=== PATIENT | male | born 1950 | race Caucasian/White ===

== ENCOUNTER → 2018-04-01 09:19 | Outpatient (CLI) | payer MEDICARE, OTHER, SELFPAY ==
--- NOTE | 2018-04-01 09:28 | US_ITS ---
STUDY: SUPERFICIAL ULTRASOUND - RIGHT CERVICAL REGION. REASON FOR EXAM: Male, 67 years old. Possible foreign body. TECHNIQUE: A superficial ultrasound was performed with real-time and static mcmullen-scale imaging. COMPARISON: None. FINDINGS: The right submandibular region was examined by ultrasound. There is evidence of a 4 mm x 5 mm x 4 mm slightly irregular hypoechoic density. This may represent either a focal hematoma or early abscess with the patient's history of a injury with a foreign body. This is a deep to the subcutaneous tissues. A follow-up examination following antibiotic therapy is recommended. US/Head/Neck Soft Tissue IMPRESSION: There is a 4 mm x 5 mm x 4 mm irregular area of decreased echotexture as described. With the patient's history of a penetrating injury, this may represent either early abscess or hematoma. Recommend short-term follow-up following antibiotic therapy. Electronically Signed: Evan Garcia MD at 12:40 EST Tel [phone], Service support ,
--- OUTSIDE RECORDS SUMMARY | 2018-06-05 23:04 | XMS RPT_ITS ---
:1950 Author Organization OHIP Care Team Providers Name Role Phone LUKAS BARRETT Attending Unavailable LUKAS BARRETT Referring Unavailable LUKAS BARRETT Primary Care Unavailable Lukas Barrett Primary Care Unavailable Sree Palm Attending Unavailable Sree Palm Admitting Unavailable Lukas Barrett Primary Care Unavailable Sree Palm Attending Unavailable Sree Palm Admitting Unavailable PROBLEMS PROBLEMS No Problem Records FoundPROCEDURES PROCEDURES No Procedure Records FoundRESULTS RESULTS HEAD/NECK SOFT TISSUE Observed: 04/01/2018 Status: F Source: COMMACK 9:28 AM [facility] REPOSITORY [facility] Imaging Services [address] [place] [id number] Head/Neck Soft Tissue MR#: [id number] Acct: [id number] Name: WU DE LEON Rep #: [id number] : 1950 M 67 From: Evan Garcia MD PCP: Lukas Barrett MD Status: REG CLI Study: Head/Neck Soft Tissue Date of Exam: 04/01/18 Exam# [id number] Ordering Dr: Lukas Barrett MD STUDY: SUPERFICIAL ULTRASOUND - RIGHT CERVICAL REGION. REASON FOR EXAM: Male, 67 years old. Possible foreign body. TECHNIQUE: A superficial ultrasound was performed with real- time and static mcmullen-scale imaging. COMPARISON: None. FINDINGS: The right submandibular region was examined by ultrasound. There is evidence of a 4 mm x 5 mm x 4 mm slightly irregular hypoechoic density. This may represent either a focal hematoma or early abscess with the patient's history of a injury with a foreign body. This is a deep to the subcutaneous tissues. A follow-up examination following antibiotic therapy is recommended. US/Head/Neck Soft Tissue IMPRESSION: There is a 4 mm x 5 mm x 4 mm irregular area of decreased echotexture as described. With the patient's history of a penetrating injury, this may represent either early abscess or hematoma. Recommend short- term follow-up following antibiotic therapy. Electronically Signed: Evan Garcia MD at 12:40 EST Tel [phone], Service support , CC: Lukas Barrett MD Tobacco Checkout Clerk: Signed XR HIP 2-3 VIEWS Observed: 01/22/2018 Status: F Source: CHRISTIAN LEFT + PELVIS 4:22 PM [facility] REPOSITORY Exam Date/Time: 01/22/2018 16:36 EST Reason for Exam: Pain, Traumatic Report STUDY: XR Hip 2-3 Views Left + Pelvis; 01/22/2018 4:36 pm INDICATION: Pain, Traumatic. COMPARISON: None. ACCESSION NUMBER(S): [id number] ORDERING CLINICIAN: Sree Palm FINDINGS: Four views left hip There is no fracture or dislocation. There is mild bilateral hip osteoarthritis with spurring along the superolateral margin of the acetabuli. IMPRESSION: No acute bony abnormality left hip. FINAL REPORT Dictated: 01/22/2018 4:52 pm Anne Montoya MD Signed (Electronic Signature): 01/22/2018 4:52 pm Signed by: Anne Montoya MD Technologist: EMILY ALLERGIES ALLERGIES DATE TYPE / CODE NAME / CODE REACTION SEVERITY SOURCE Drug/[id number] No Known Allergies [facility] 003([employer] [facility]) System Repository Drug/[id number] penicillins [id number] [facility] 003([employer] [facility]) System Repository ENCOUNTERS ENCOUNTERS ADMIT/DISCHARGE ACCOUNT NUMBER ADMITTING ENCOUNTER LOCATION SOURCE CLASS 04/01/2018 [id number] Ambulatory [facility] ding:US Repository 01/22/2018/01/23/[id number] [address] ding:[facility] Repository 01/22/2018/01/23/[id number] [address] ding:CD:[id number] [facility] [id number]: Repository CD:[id number] 01/22/[id number] Repository PAYERS PAYERS ENCOUNTER GUARANTOR PAYER SUBSCRIBER SOURCE 04/01/2018 WU Alfaro Primary WU Alfaro [place] [id number] Insurance:MEDICARE PISKURDOB: Replaced By [facility] PART A BPolicy Number: [id number], [place] [address]Szl: [id number] Repository Date:2018-03-25 () 04/01/2018 Secondary WU Godoy Insurance:AARolicy PISKKIMBERLYDOB: Community Number: [id number] [id number] Repository Date:[id number], [place] [address]HT: 04/01/2018 [facility] [place] Insurance:SELF PAY Replaced By [facility] Number: Effective Repository Date:2018-03-25 01/22/2018 WU Oviedo WU Dumont MARIUMURDOB: Insurance:[facility]icarePolChoctaw Health CenterD[facility]: [facility] cy Number: Effective [id number] [facility] Date:2018-01-22 Repository [place] [id number] [place] Name:CD:[id number] [place] [address]Nmw: [id number], [place] [address]Qje: [id number]: [phone] (HP) () 01/22/2018 Secondary WU Dumont Insurance:AARAIDEjac FUENTES: [facility] Number: Effective [id number] System Date:2018-01-22 [place] Repository [id number] [facility], Name:CD:[id number] [facility] [address]2475[place], [place] [address]Utn: [id number]: [phone] (HP) (WP) 01/22/2018 [facility]:MedicarePoli PISKURDOB: [facility] cy Number: Effective [id number] System [place] Date:2018-01-22 [place] Repository [facility], [id number], [place] Name:CD:[id number] [facility] [address]Tcz: [id number], [place] [address]Brm: [id number]: [phone] ([phone] (HP) (WP) 01/22/2018 [facility] Insurance:[facility] ALFREDO: [facility] Number: Effective [id number] System Date:2018-01-22 [place] Repository [id number] [facility], Name:CD:[id number] [facility] [address]12076LDZ[place], [place] [address]Vzg: [phone]: [phone] (HP) (WP) 01/22/2018 [facility]: Insurance:MedicarePoli PISKURDOB: [facility] cy Number: [id number] Repository [place] [id number] [facility], Date:Plan Name:[facility] [id number]: [id number]: () () 01/22/2018 [facility] Insurance:MedicarePoli PISKURDOB: [facility] cy Number: [id number] Repository [id number] [place] Date:Plan Name:[facility]jimmy ASHSSM HEALTH CAREAMBIKAGENTRY, [place] [id number]: () 01/22/2018 [facility] Insurance:[facility]: [facility] [id number] Repository Number: [place] [id number] [place], Date:Plan Name:Health [place] [id number]: ()
== END ==
PROVIDERS: Family Provider Family Medicine; PCP Family Medicine; Referring Provider Family Medicine; Visit Provider Family Medicine
DX: S10.9 Superficial injury of unspecified part of neck (principal); X58.XXXS Exposure to other specified factors, sequela
CPT/HCPCS: 76536

== ENCOUNTER 2021-06-08 09:38 | Emergency (ER) | payer MEDICARE, BC, SELFPAY ==
[2021-06-08 09:40] VITALS: BP 131/80; PULSE 102; RESP 14; TEMP 36.2; O2SAT 93; BMI 15.4
--- NOTE | 2021-06-08 10:01 | EX.ED.GUMALE ---
HPI History of Present Illness Chief Complaint: Complaint Detail of Chief Complaint: Urinary retention since 7 PM yesterday Informant: patient Narrative Narrative: Patient presents to the emergency department complaint of inability to void. Patient states he last voided about 7:30 PM last night. Is not unusual for him to get up a couple of times at night to urinate as he has had some chronic retention issues and history of BPH. Patient is always been able to relax and then void. Patient denies recent illness. He denies dysuria. Denies fever. [facility] Medical History (Updated 06/08/21 @ 10:[address] Sinan Car, DO) BPH (benign prostatic hyperplasia) Hyperlipidemia Allergy/AdvReac Type Severity Reaction Status Date / Time Penicillins [PCN] AdvReac Rash Verified 06/08/21 09:40 ROS ROS ED Constitutional Constitutional ED: Reports systems reviewed and no addt'l complaints, except as documented; Denies body ache(s), change in weight or chills Eyes Eyes: Denies acute decrease in peripheral vision, change in vision, double vision or loss of vision ENT ENT ED: Reports none; Denies ear pain, lip swelling, loss taste/smell, neck pain, otalgia or sore throat Cardiovascular Cardiovascular: Reports none; Denies abdominal pain, chest pain with activity, leg edema, lightheadedness, palpitations, rapid heart rate or syncope Respiratory/Chest Respiratory/Chest: Reports none; Denies change in mental status, dry cough, dyspnea, hemoptysis, shortness of breath at rest or shortness of breath with exertion Gastrointestinal Gastrointestinal: Reports none; Denies abdominal pain, change in stool character, diarrhea, hematemesis, hematochezia, melena, rectal bleeding or vomiting Genitourinary Genitourinary ED: Reports none and other Details: Urinary retention ; Denies abdominal discomfort, anuria, dysuria, genital pain or polyuria Musculoskeletal Musculoskeletal: Reports none; Denies arthralgias, back pain, difficulty walking, extremity pain, muscle weakness or myalgias Integumentary Reports none; Denies abscess or rash Neurologic Neurologic: Reports none; Denies abnormal gait, confusion, focal weakness, frequent falls, headache(s), loss of vision, numbness, paresthesias, radicular pain, vertigo or weakness Psychiatric Psychiatric: Reports systems reviewed and no addt'l complaints, except as documented and none; Denies behavioral changes, confusion, difficulty concentrating, hallucinations, suicidal ideation, tactile hallucinations or visual hallucinations Endocrine Endocrinology: Denies none, cold intolerance, excessive sweating, fatigue or heat intolerance Hematologic/Lymphatic Hematologic/Lymphatic: Reports none; Denies anemia, easy bleeding or easy bruising Allergic/Immunologic Allergic/Immunologic ED: Denies as per HPI, none, lip swelling, mouth swelling, throat swelling, tongue swelling or hives EXAM Physical Exam Const Vital Signs: 06/08/21 09:40 Temperature 97.1 F L Temperature Source Temporal Pulse Rate 102 H Respiratory Rate 14 Blood Pressure 131/80 H Blood Pressure Mean 97 Pulse Ox 93 Oxygen Delivery Method Room Air Positive well nourished and well developed General Appearance ED: well developed and NAD HEENT Reports TM's clear and moist mucous membranes normocephalic and atraumatic; Negative for trauma or tenderness Tympanic Membrane ED: Yes TM's clear Eyes PERRL and EOMs intact bilaterally General Eye ED: Negative for pale conjunctiva or scleral icterus Neck no lymphadenopathy, supple and no JVD General: Negative for tenderness Chest Wall inspection of chest normal and palpation of chest normal Chest: Negative for tenderness Resp normal respiratory effort and clear to auscultation bilaterally Effort and Inspection: Negative for respiratory distress or pain with movement Auscultation: Negative for rhonchi, wheezes or diminished lung sounds Cardio regular rate, regular rhythm, S1 normal heart sound, S2 normal heart sound and no murmurs Peripheral Pulses: pulses 2+ throughout GI normal to inspection, nondistended, normoactive bowel sounds, soft to palpation, non-tender, non-distended and no masses GI Narrative: Mild tenderness over the suprapubic region. No masses palpated. Back/Spine no CVA tenderness and no thoracic nor lumbar tenderness Extremity normal to inspection General Extremety ED: Negative for edema General Extremity: Negative for edema Neuro oriented x3, CN's II-XII intact bilaterally, no sensory deficits noted and gait normal Sensorium / Orientation: awake, alert, oriented to person, oriented to place and oriented to time Motor Exam: strength 5/5 throughout and strength abnormal Psych mental status grossly normal Skin no rashes or lesions noted and no wounds MDM MDM MDM Narrative Medical decision making narrative: Patient had a Thomas catheter placed and immediately obtained more than 800 cc of urine. Patient had immediate relief of symptoms. Urinalysis was normal. Lab work unremarkable. At this point he will be given a leg bag and referral to urology for follow-up in 3 to 5 days. Lab Data Attestation: I reviewed the patient's lab results. Labs: Laboratory Results - last 24 hr 06/08/21 06/08/21 06/08/21 10:05 10:05 10:16 WBC 6.8 RBC 5.45 Hgb 16.3 Hct 47.0 MCV 86.2 MCH 29.9 MCHC 34.7 RDW Std Deviation 42.5 RDW Coeff of Mason 13.6 Plt Count 204 MPV 9.1 Immature Gran % (Auto) 0.300 Neut % (Auto) 79.7 H Lymph % (Auto) 14.0 L Taney % (Auto) 4.7 Eos % (Auto) 0.6 Baso % (Auto) 0.7 Absolute Neuts (auto) 5.5 Absolute Lymphs (auto) 0.96 Nucleated RBC % 0 Sodium 139 Potassium 4.1 Chloride 108 H Carbon Dioxide 27.0 Anion Gap 4 L BUN 13 Creatinine 1.22 Estim Creat Clear Calc 41.80 Est GFR (MDRD) Af Amer 76 Est GFR (MDRD) Non-Af 62 BUN/Creatinine Ratio 10.7 Glucose 120 H Calcium 9.4 Urine Color Yellow Urine Clarity Clear Urine pH 5.0 Ur Specific [place] 1.015 Urine Protein Negative Urine Glucose (UA) Normal Urine Ketones Negative Urine Occult Blood 150 H Urine Nitrite Negative Urine Bilirubin Negative Urine Urobilinogen Normal Ur Leukocyte Esterase Negative Urine RBC 0 SEEN Urine WBC 0 SEEN Ur Squamous Epith Cells 0 SEEN Urine Bacteria 0 SEEN Urine Mucus 0 SEEN Discharge Plan Triage Chief Complaint: Complaint ED Provider: Sinan Car Dx/Rx/DC Orders Clinical Impression: Acute urinary retention Instructions: ED Urinary Retention, Male Primary Care Provider: Bernard Contreras Referrals: Bernard Contreras MD [Primary Care Provider] - Gilberto Frausto MD [STAFF PHYSICIAN] - 3-5 Days Disposition Disposition: Home, Self Care
[2021-06-08] MEDS: 0.9% Normal Saline 1,000 ML 150 ML IV (10:17)
[2021-06-08 10:19] LABS: Bacteria 0 SEEN /hpf (None Seen); Mucous, Urine 0 SEEN /hpf (<or=2+); Red Blood Cells-Urine 0 SEEN /hpf (0-5); Squamous Epithelial Cells - UA 0 SEEN /hpf (0-5); White Blood Cells 0 SEEN /hpf (0-5)
[2021-06-08 10:20] LABS: Absolute Lymphocyte Count 0.96 X10^3/uL (0.83-4.51); Absolute Neutrophil Count 5.5 X10^3/uL (2.0-7.7); Basophil# 0.05 X10^3/uL; Basophil% 0.7 % (0-1); Eosinophil# 0.04 X10^3/uL; Eosinophils% 0.6 % (0-5); Hemoglobin 16.3 g/dL (13.0-16.5); Lymphocyte # 0.96 X10^3/ul (0.83-4.51); Mean Corp Hgb Conc 34.7 g/dL (32-36); Mean Corpuscular Hgb 29.9 pg (27.0-32.0); Mean Corpuscular Volume 86.2 fL (80-94); Mean Platelet Vol. 9.1 fl (6.2-12.0); Monocyte# 0.32 X10^3/uL; Monocyte% 4.7 % (0-10); NRBC Flagged by Analyzer 0 % (0-5); Neutrophil # 5.45 X10^3/uL (2.7-7.7); Neutrophil % 79.7 % (47-70); Platelet Count 204 K/mm3 (150-450); RBC Distribution Width CV 13.6 % (11.6-14.6); RBC Distribution Width SD 42.5 fl (35.1-43.9); Red Blood Count 5.45 M/mm3 (4.6-6.2); White Blood Count 6.8 K/mm3 (4.4-11.0)
[2021-06-08 10:23] LABS: Color, Urine Yellow (Yellow); Glucose, Dipstick Normal (Normal); Ketone-Dipstick Negative (Negative); Leukocyte Esterase-Dipstick Negative /ul (Negative); Nitrite-Dipstick Negative (Negative); Occult Blood-Urine 150 /ul (Negative); Protein-Dipstick Negative (Negative); Specific Gravity, Urine 1.015 (1.002-1.030); Urine Bilirubin Dipstick Negative (Negative); Urine Clarity Clear (Clear); Urine Urobilinogen Normal (Normal)
[2021-06-08 10:31] LABS: Anion Gap 4 (5-15); BUN 13 mg/dL (7-18); BUN/Creat Ratio 10.7 RATIO (10-20); Calcium,Total 9.4 mg/dL (8.5-10.1); Chloride 108 mmol/L (98-107); Creatinine, Serum 1.22 mg/dL (0.70-1.30); EST Glomerular Filtration Rate 62 mL/min (>60); Est Glom Filt Rate - Afr Amer 76 mL/min (>60); Glucose 120 mg/dL (74-106); Potassium 4.1 mmol/L (3.5-5.1); Sodium Level 139 mmol/L (136-145)
== END 2021-06-08 10:55 | disposition home or self-care (01) ==
PROVIDERS: Emergency Provider Emergency Medicine; PCP Family Medicine; Visit Provider Emergency Medicine
DX: N40.1 Benign prostatic hyperplasia with lower urinary tract symptoms (principal); R33.8 Other retention of urine; E78.5 Hyperlipidemia, unspecified; Z79.899 Other long term (current) drug therapy
CPT/HCPCS: 51702; 80048; 81001; 85025; 96360; 99284; J7030

== ENCOUNTER 2021-06-28 10:46 | Outpatient (CLI) | payer MEDICARE, BC, SELFPAY ==
--- NOTE | 2021-06-28 10:49 | ECHOCS_ITS ---
Reason For Study: Arrhythmia Procedure This was a 2D Doppler, Color Flow transthoracic echocardiogram. The study was technically difficult. Contrast injection was performed. Exam performed in department. Left Ventricle Normal LV size. Left ventricular systolic function is lower limits of normal. The estimated ejection fraction is 50 %. Stage 1 diastolic dysfunction. No regional wall motion abnormalities noted. Right Ventricle Normal RV size. Normal systolic function. Atria Normal left atrium. Normal right atrium. Mitral Valve Normal mitral valve. Tricuspid Valve Normal tricuspid valve. Aortic Valve Trisinus/trileaflet aortic valve. Pulmonic Valve Normal pulmonic valve. Great Vessels Normal aortic root. The pulmonary artery is normal size. Normal inferior vena cava. Pericardium/Pleural No pericardial effusion. Medication 22 gauge I.V. with prn adaptor inserted into right arm. Diluted definity 5ml given slow IV push to enhance endocardial definition. MMode/2D Measurements & Calculations LVIDd: 4.3 cm IVSd: 1.2 cm LA dimension: 3.8 cm LVIDs: 3.1 cm LVPWd: 0.93 cm RVDd: 3.8 cm FS: 28.5 % LAV(MOD-bp): 50.5 ml LA A4 area: 17.1 cm2 RA A4 area: 13.7 cm2 LAV(MOD-bp) Indexed: 21.1 ml/m2 LAV(MOD-sp2): 42.9 ml LAV(MOD-sp4): 45.9 ml Time Measurements MV dec time: 0.21 sec Doppler Measurements & Calculations MV E max cedric: 40.0 cm/sec Lat Peak E' Cedric: 8.5 cm/sec Med Peak E' Cedric: 6.1 cm/sec MV A max cedric: 92.1 cm/sec E/E' lat: 4.7 E/E' med: 6.6 MV E/A: 0.43 Ao V2 max: 103.4 cm/sec LV V1 max: 77.1 cm/sec PA V2 max: 111.7 cm/sec Ao max P.3 mmHg LV V1 max P.4 mmHg ECHO/Echo Complete W/ Contrast Interpretation Summary Normal LV size. Left ventricular systolic function is lower limits of normal. The estimated ejection fraction is 50 %. Stage 1 diastolic dysfunction. Contrast injection was performed. Ordering Physician: Edwin Brantley Referring Physician: Bernard Contreras Performed By: Josesito Duncan RCS
== END 2021-06-28 23:59 | disposition home or self-care (01) ==
LOC: CVS 10:48
PROVIDERS: PCP Family Medicine; Referring Provider Internal Medicine Cardiovascular Disease; Visit Provider Internal Medicine Cardiovascular Disease
DX: R94.31 Abnormal electrocardiogram [ECG] [EKG] (principal)
CPT/HCPCS: 93306; Q9957; A4216; C8929

== ENCOUNTER 2021-07-05 09:08 | Observation (INO) | payer MEDICARE, BC, SELFPAY ==
--- NOTE | 2021-06-25 10:14 | EKG12_ITS ---
Test Reason : PREOP Blood Pressure : / mmHG Vent. Rate : 092 BPM Atrial Rate : 092 BPM P-R Int : 184 ms QRS Dur : 172 ms QT Int : 406 ms P-R-T Axes : 051 102 -40 degrees QTc Int : 502 ms Normal sinus rhythm Right bundle branch block T wave abnormality, consider inferior ischemia Abnormal ECG Confirmed by LOLY BLOUNT, ROSIBEL ([id number]), deputy editor in chief ALE COREA ([id number]) on 06/25/2021 10:15:51 AM Referred By: Gilberto Frausto Confirmed By:ROSIBEL SALCIDO MD
[2021-07-05] VITALS (11 sets, daily range): BP systolic 103–147; BP diastolic 54–89; PULSE 81–100; RESP 16–18; TEMP 36.3–36.7; O2SAT 91–98; BMI 32.4
--- NOTE | 2021-07-05 | PROS_PTH ---
PATIENT: WU DE LEON LOC: MS3 U#:[id number] AGE/SX: 70/M ROOM: [facility] [place]/05/[address]: Dr. Gilberto Frausto MD : 1950 BED: 1 DIS: 07/06/2021 SPEC #: [id number] RECD: 07/05/21 12:54 STATUS: SAHIL GUTIERREZ #: [id number] JOSE: 07/05/21 00:[address]: Gilberto Frausto DEPT: SURGICAL PATHOLOGY RECD BY: Loy Juárez ENTERED: 07/05/21 12:54 SP TYPE: TURP OTHR DR: Dr. Bernard Contreras MD Tissues: Prostate, NOS Procedures: Surgery Specimen Level IV HEADER OPERATION: Cysto, TUR prostate, removal bladder calculi, Olympus PRE-OP DIAGNOSIS: BPH, bladder stone, retention of urine TISSUE SUBMITTED: Prostate chips MICROSCOPIC DIAGNOSIS Prostate chips, transurethral resection: Benign prostatic hyperplasia, glandular and stromal type. Focal acute and chronic inflammation. QUOC:nolan 07/08/2021 MICROSCOPIC DESCRIPTION Slides are reviewed. GROSS DESCRIPTION Received is one container labeled with the patient's name and designated prostate chips. The specimen consists of multiple irregular fragments of pink-meek, rubbery, soft tissue that in aggregate weigh 25.9 gm and measure in aggregate 8 x 7 x 3 cm. Ultrasound Supervisor tissue is submitted in ten cassettes. / QUOC:nolan 07/05/2021 TC:5 CPT: 04077
[2021-07-05] MEDS: Lactated Ringers 1,000 ML 15 ML IV ×2 (07:47→10:31)
[2021-07-05] MEDS: Cefazolin 2 GM in 0.9% Normal Saline 100 ML IV (09:02)
--- NOTE | 2021-07-05 09:09 | PCM.HP.STD ---
HPI - General HPI Narrative WU DE LEON, is a 70 M who presents for TURP for retention of urine PFSH Medical History (Updated 07/01/21 @ 14:54 by Mariama Patel) Alcohol use BPH (benign prostatic hyperplasia) Cardiology follow-up encounter Thomas catheter in place History of echocardiogram Hyperlipidemia Injury of head and neck Non-smoker Right bundle branch block (RBBB) Sarcoidosis Wears glasses Home Medications rosuvastatin 10 mg PO DAILY 06/08/21 [History Last Taken Unknown] ciprofloxacin HCl [Cipro] 500 mg PO BID #10 tab 07/05/21 [Rx Last Taken Unknown] Allergy/AdvReac Type Severity Reaction Status Date / Time Penicillins [PCN] AdvReac Rash Verified 07/05/21 07:39 Surgical History History of esophagogastroduodenoscopy (EGD) History of left heart catheterization (2006) Hx of colonoscopy Hx of meniscectomy of right knee Hx of umbilical hernia repair Social History Smoking Status: Never smoker Vital Signs Vital Signs Vital Signs: 07/05/21 07:40 Temperature 97.3 F L Temperature Source Temporal Pulse Rate 99 Respiratory Rate 16 Respiratory Pattern Normal Blood Pressure 147/89 H Blood Pressure Mean 108 Blood Pressure Source Monitor Blood Pressure Position Semi-Fowlers Blood Pressure Location Right Arm Pulse Ox 98 Oxygen Delivery Method Room Air Weight Weight: 108.409 kg Body Mass Index (BMI) 32.4
--- NOTE | 2021-07-05 09:09 | PCM.DC ---
Discharge Instructions Diet Discharge Diet: No restrictions Activity Discharge Activity: Return to Normal Activity and May Not Drive (while taking narcotic pain medications.) Dressing / Incision Call your doctor if you observe: Fever of 101 or Higher Follow Up Care Please Follow Up With: Gilberto Frausto MD When: Call [phone] for an appointment Test Results: Test results from this visit will be discussed in further detail at your follow-up appointment, if applicable. Discharge Plan Admission Primary Reason for Your Visit: bph, retention of urine Attending Provider: Gilberto Frausto Primary Care Provider: Bernard Contreras Instructions Patient Instructions: TURP Home Recovery Discharge Orders/Prescriptions Prescriptions: New ciprofloxacin HCl [Cipro] 500 mg tablet 500 mg PO BID Qty: 10 RF: 0 Continued rosuvastatin 10 mg tablet 10 mg PO DAILY RF: 0 Discontinued tamsulosin 0.4 mg capsule 0.4 mg PO DAILY RF: 0 finasteride [Proscar] 5 mg tablet 5 mg PO DAILY RF: 0 Referrals / Follow Up: Bernard Contreras MD [Primary Care Provider] - Gilberto Frausto MD [STAFF PHYSICIAN] - Disposition Disposition (needs filled in before D/C Order can be placed): Home, Self Care
--- NOTE | 2021-07-05 10:45 | PCM.OPRPT ---
Report of Operation Date of Procedure: 07/05/21 Pre-Operative Diagnosis: bph with obstruction Post-Operative Diagnosis: same Surgery/Procedure Performed:: TURP Description of Surgical Findings:: In the preoperative setting I discussed with the patient how the surgery would be done with expect afterwards. We discussed how a prostate resection is done and we discussed the risk of the surgery including, bleeding, infection, retrograde ejaculation, changes with ejaculation or intercourse,. We discussed the possibility that the resection of the prostate may not alleviate his urinary symptoms. We discussed the small risk of developing scar tissue along the urethral channel and strictures. We also discussed the chance of the prostate could grow back and he may need further surgery or treatment in the future for prostate problems. Patient was taken back to the operating room, timeout procedure was performed, he was identified and marked and placed on the operating room table. He underwent general anesthesia. He was placed in dorsolithotomy position. Penis and testicles were prepped and draped in usual sterile fashion. Went into the bladder using the visual obturator with a resectoscope. Once inside the bladder identified the right and left ureteral orifice. I then identified the prostate and the anatomy of the prostate. I marked out the area of the sphincter and the verumontanum was identified. I then proceeded with the prostate resection first resected the median lobe. And then resected the right lobe of the prostate. Then to resect the left lobe of the prostate. I then resected the apical tissue of the prostate. This was a complete resection of all obstructive tissue to improve voiding and relieve obstruction. I then made sure that there was no injury to the sphincter or the verumontanum was still intact. At the end of the resection all the chips were Ellik out of the bladder. I then identified the left and right ureteral orifice and these were confirmed to be in good position and effluxing and not injured. The resectoscope was removed, a 22 Spanish catheter was placed into the bladder on continuous irrigation. And the urine was fairly light pink color and draining normally. He was taken back to the PACU in good condition. CPT 99763 Surgeon: Lisbet Type of Anesthesia: General Drains: 22fr [address] way Admit VTE Documentation VTE Present on Admission: No VTE Mechan Device Prophylaxis: SCD's VTE Pharm Prophylaxis ordered?: No
[2021-07-05] MEDS: Atorvastatin Calcium 20 MG Tablet PO (21:10)
[2021-07-05] MEDS: Ciprofloxacin 500 MG Tablet PO (21:10)
[2021-07-06 02:49] VITALS: BP 100/77; PULSE 91; RESP 18; TEMP 36.6; O2SAT 99
[2021-07-06 08:39] VITALS: BP 107/51; PULSE 89; RESP 18; TEMP 36.6; O2SAT 97
[2021-07-06] MEDS: Ciprofloxacin 500 MG Tablet PO (09:22)
--- NOTE | 2021-07-06 11:00 | PCM.PN.GU ---
Subjective Subjective s/p turp urine clear cbi slow d/c choudhary home after voids Objective Data Objective Data Vital Signs: Vital Signs Temp Pulse Resp BP Pulse Ox 98 F 89 18 107/51 L 97 07/06/21 08:39 07/06/21 08:39 07/06/21 08:39 07/06/21 08:39 07/06/21 08:39 Oxygen Delivery Method Room Air Weight: 108.409 kg Body Mass Index (BMI) 32.4 Intake & Output: Intake and Output for Last 24 Hours 07/04/21 07/05/21 07/06/21 23:59 23:59 23:59 Intake Total 1510 / 1510 1300 / 1300 Output Total 7195 / 7195 3000 / 3000 Balance -5685 / -5685 -1700 / -1700
--- NOTE | 2021-07-06 12:50 | CASEMGMT ---
LAMONT ZHENG NOTE: Intro role of CM to patient and and PINO form explained re: Observation status for treatment of TURP. Explained hospitalization will be paid per his insurance policy for Outpatient billing and condition will continue to be evaluated for Inpt necessity. Also let pt know that [facility] sends paper in the billing packet with their phone number if questions arise. Discussed Pharmacy section of PINO form and self administered medication guideline. Pt and verbalize understanding and do not have further questions. Form signed, copy made and placed in chart, and original given to pt and . Bonilla SANTOS RN CM
[2021-07-06 14:05] VITALS: BP 105/54; PULSE 72; RESP 18; TEMP 36.8; O2SAT 98
== END 2021-07-06 18:00 | disposition home or self-care (01) ==
LOC: MS3 17:46
PROVIDERS: Admitting Provider Urology; PCP Family Medicine; Referring Provider Urology; Visit Provider Urology
PROC: (CPT 52601; principal; 2021-07-05 09:00)
DX: N40.1 Benign prostatic hyperplasia with lower urinary tract symptoms (principal); R33.8 Other retention of urine; E78.5 Hyperlipidemia, unspecified; R39.12 Poor urinary stream; R35.0 Frequency of micturition; Z79.899 Other long term (current) drug therapy
CPT/HCPCS: 52601; 00914; 88305; 93005; 99218; 99406; J7120; G0378; J2405

== ENCOUNTER 2021-08-27 12:31 | Emergency (ER) | payer MEDICARE, BC, SELFPAY ==
[2021-08-27 12:34] VITALS: BP 137/123; PULSE 90; RESP 18; TEMP 36.6; O2SAT 95; BMI 32.5
--- NOTE | 2021-08-27 13:27 | CT_ITS ---
STUDY: CT ABDOMEN AND PELVIS WITH CONTRAST REASON FOR EXAM: Male, 71 years old. Abscess / cellulitis left side of abdomen. Prior umbilical hernia repair. RADIATION DOSAGE (If Supplied By Facility): CTDIvol = ( 21.18 ) mGy, DLP = ( 2210.34 ) mGycm TECHNIQUE: Transaxial images were obtained from the dome of the diaphragm to the symphysis pubis without oral contrast. IV 100mL Isovue-370 was administered. Sagittal and coronal images were reconstructed. Individualized dose optimization techniques were used for this CT. COMPARISON: None. FINDINGS: Minimal increased linear markings at the lung bases slightly more prominent on the right side suggestive of atelectasis. Coronary artery calcification. There is decreased attenuation of the liver consistent with steatosis. There are multiple gallstones. Normal spleen. Normal pancreas. Normal bilateral adrenal glands. 1.4 cm cyst in the anterior upper pole of the right kidney. 1.9 cm cyst in the lower posterior aspect of the right kidney. 1.6 cm cyst in the posterior lateral aspect of the left kidney. Normal visualized stomach. Normal small intestine. There are multiple colonic diverticula consistent with diverticulosis. The appendix is visualized and appears normal. There is scattered atherosclerotic calcification of the abdominal aorta, without a demonstrated aneurysm. Normal inferior vena cava. Normal retroperitoneum. Normal urinary bladder. Heterogeneous enlargement of the prostate. The prostate measures 5.4 size by 6.2 cm. This causes indentation of the bladder base. This evidence of prior TURP. Normal abdominal wall. Normal osseous structures. CT/Abdomen/Pelvis W IV Cont ONLY IMPRESSION: Fatty infiltration of the liver. Multiple gallstones. Small bilateral renal cysts. Sigmoid diverticulosis. Heterogeneous enlargement of the prostate with evidence of prior TURP. Electronically Signed: Evan Garcia MD at 14:53 EDT ,
--- NOTE | 2021-08-27 13:30 | EDS_ITS ---
HPI History of Present Illness Chief Complaint: Wound Check Informant: patient Onset/Context/Timing Onset: Days Context: Gradual Onset Current Severity: Moderate Maximum Severity: Moderate Narrative Narrative: Patient presents secondary to cellulitis on his abdominal wall. I was called by his PCP this morning. Patient first noted a red sore area on his left abdominal wall late last week. He was seen by his PCP yesterday who started him on clindamycin and obtained a superficial wound culture. Those results are not yet returned. He was seen back in the office this morning where redness had worsened. An I&D was attempted but no resultant pus or drainage. Iodoform packing was placed. Patient reports having a temperature yesterday morning of 101. He has otherwise not felt ill. [facility] Medical History Alcohol use BPH (benign prostatic hyperplasia) Cardiology follow-up encounter Thomas catheter in place History of echocardiogram Hyperlipidemia Injury of head and neck Non-smoker Right bundle branch block (RBBB) Sarcoidosis Wears glasses Home Medications rosuvastatin 10 mg PO DAILY 06/08/21 [History Last Taken 07/04/21] ciprofloxacin HCl [Cipro] 500 mg PO BID #10 tab 07/05/21 [Rx Last Taken Unknown] finasteride [Proscar] 5 mg PO DAILY 07/05/21 [History Last Taken 07/04/21] tamsulosin [Flomax] 0.4 mg PO DAILY 07/05/21 [History Last Taken 07/04/21] Allergy/AdvReac Type Severity Reaction Status Date / Time Penicillins [PCN] AdvReac Rash Verified 08/27/21 12:37 Surgical History History of esophagogastroduodenoscopy (EGD) History of left heart catheterization (2006) Hx of colonoscopy Hx of meniscectomy of right knee Hx of umbilical hernia repair Social History Smoking Status: Never smoker ROS ROS ED Constitutional Constitutional ED: Denies chills or fever(s) Eyes Eyes: Denies change in vision ENT ENT ED: Denies sore throat Cardiovascular Cardiovascular: Denies chest pain Respiratory/Chest Respiratory/Chest: Denies cough or dyspnea Gastrointestinal Gastrointestinal: Denies abdominal pain, nausea or vomiting Genitourinary Genitourinary ED: Denies dysuria Musculoskeletal Musculoskeletal: Denies back pain Integumentary Reports rash Neurologic Neurologic: Denies headache(s) or weakness Allergic/Immunologic Allergic/Immunologic ED: Denies urticaria EXAM Physical Exam Const Vital Signs: 08/27/21 12:34 08/27/21 15:56 Temperature 98 F Temperature Source Temporal Pulse Rate 90 81 Respiratory Rate 18 16 Blood Pressure 137/123 H 135/75 H Blood Pressure Mean 127 95 Pulse Ox 95 99 Oxygen Delivery Method Room Air Room Air Positive well nourished and well developed General Appearance ED: well developed HEENT Reports moist mucous membranes Eyes PERRL and EOMs intact bilaterally Neck supple Chest Wall inspection of chest normal and palpation of chest normal Resp normal respiratory effort and clear to auscultation bilaterally Cardio regular rate and regular rhythm GI non-tender GI Narrative: 10 x 16 cm area of cellulitis in the left abdominal wall. Wound packing in place. Palpation: soft Extremity normal to inspection Neuro oriented x3 Sensorium / Orientation: alert Psych mental status grossly normal MDM MDM MDM Narrative Medical decision making narrative: Blood cultures obtained. Lab work ordered. CT of the abdomen and pelvis with IV contrast obtained. Lab Data Attestation: I reviewed the patient's lab results. Labs: Laboratory Results - last 24 hr 08/27/21 08/27/21 08/27/21 13:45 13:45 15:40 WBC 4.6 RBC 4.63 Hgb 13.1 Hct 39.3 L MCV 84.9 MCH 28.3 MCHC 33.3 RDW Std Deviation 40.5 RDW Coeff of [place] 13.0 Plt Count 110 L MPV 9.5 Immature Gran % (Auto) 0.200 Neut % (Auto) 70.9 H Lymph % (Auto) 14.7 L [place] % (Auto) 13.6 H Eos % (Auto) 0.0 Baso % (Auto) 0.6 Absolute Neuts (auto) 3.3 Absolute Lymphs (auto) 0.68 L Nucleated RBC % 0 ESR 34 H Sodium 133 L Potassium 3.7 Chloride 100 Carbon Dioxide 29.0 Anion Gap 4 L BUN 17 Creatinine 1.26 Estim Creat Clear Calc 59.88 Est GFR (MDRD) Af Amer 73 Est GFR (MDRD) Non-Af 60 BUN/Creatinine Ratio 13.5 Glucose 108 H Calcium 9.0 C-React Prot Ext Range 95.50 H Urine Color Straw Urine Clarity Clear Urine pH 6.0 Ur Specific [place] 1.005 Urine Protein Negative Urine Glucose (UA) Normal Urine Ketones Negative Urine Occult Blood Negative Urine Nitrite Negative Urine Bilirubin Negative Urine Urobilinogen Normal Ur Leukocyte Esterase Negative Radiography Diagnostic Testing: Clinical Impression(s) from Imaging Studies Abdomen/Pelvis CT 08/27/21 13:27 IMPRESSION: Fatty infiltration of the liver. Multiple gallstones. Small bilateral renal cysts. Sigmoid diverticulosis. Heterogeneous enlargement of the prostate with evidence of prior TURP. Electronically Signed: Evan Garcia MD at 14:53 EDT , Treatment and Re-Evaluation Narrative: CBC is normal at 4.6. No left shift noted. Chemistry studies significant only for slightly low sodium of 133. Renal function is normal. CRP is elevated at 95. Sed rate is 34. Urinalysis reveals no infection. CT scan shows multiple gallstones and sigmoid diverticulosis. There is no mention of any inflammatory changes in the abdominal wall. When I review the images there is very slight inflammation noted. There is no abscess or fluid collection. Patient's area of erythema is already outlined. He received a dose of IV vancomycin here. With the reassuring imaging and lab work I do think he can continue the clindamycin at home. If after another 24 to 48 hours on the medication at home he is not noting significant provement he should return for further evaluation. He voices understanding and agreement. Discharge Plan Triage Chief Complaint: Wound Check ED Provider: Lilia Rajput Dx/Rx/DC Orders Clinical Impression: Cellulitis Instructions: ED Cellulitis Prescriptions: No Action rosuvastatin 10 mg tablet 10 mg PO DAILY RF: 0 ciprofloxacin HCl [Cipro] 500 mg tablet 500 mg PO BID Qty: 10 RF: 0 tamsulosin [Flomax] 0.4 mg capsule 0.4 mg PO DAILY RF: 0 finasteride [Proscar] 5 mg Tablet 5 mg PO DAILY RF: 0 Primary Care Provider: Bernard Contreras Referrals: Bernard Contreras MD [Primary Care Provider] - 5-7 Days Disposition Disposition: Home, Self Care
[2021-08-27 14:00] LABS: Erythrocyte Sedimentation Rate 34 mm/hr (0-20)
[2021-08-27 14:03] LABS: Absolute Lymphocyte Count 0.68 X10^3/uL (0.83-4.51); Absolute Neutrophil Count 3.3 X10^3/uL (2.0-7.7); Basophil# 0.03 X10^3/uL; Basophil% 0.6 % (0-1); Hematocrit 39.3 % (40-54); Hemoglobin 13.1 g/dL (13.0-16.5); Lymphocyte # 0.68 X10^3/ul (0.83-4.51); Lymphocyte % 14.7 % (19-41); Mean Corp Hgb Conc 33.3 g/dL (32-36); Mean Corpuscular Hgb 28.3 pg (27.0-32.0); Mean Corpuscular Volume 84.9 fL (80-94); Mean Platelet Vol. 9.5 fl (6.2-12.0); Monocyte# 0.63 X10^3/uL; Monocyte% 13.6 % (0-10); NRBC Flagged by Analyzer 0 % (0-5); Neutrophil # 3.29 X10^3/uL (2.7-7.7); Neutrophil % 70.9 % (47-70); Platelet Count 110 K/mm3 (150-450); RBC Distribution Width SD 40.5 fl (35.1-43.9); Red Blood Count 4.63 M/mm3 (4.6-6.2); White Blood Count 4.6 K/mm3 (4.4-11.0)
[2021-08-27] MEDS: 0.9% Normal Saline 1,000 ML 150 ML IV (14:05)
[2021-08-27 14:14] LABS: Anion Gap 4 (5-15); BUN 17 mg/dL (7-18); BUN/Creat Ratio 13.5 RATIO (10-20); Chloride 100 mmol/L (98-107); Creatinine, Serum 1.26 mg/dL (0.70-1.30); EST Glomerular Filtration Rate 60 mL/min (>60); Est Glom Filt Rate - Afr Amer 73 mL/min (>60); Estimated Creatinine Clearance 59.88 ml/min; Glucose 108 mg/dL (74-106); Potassium 3.7 mmol/L (3.5-5.1); Sodium Level 133 mmol/L (136-145)
[2021-08-27 15:51] LABS: Mucous, Urine 0 SEEN /hpf (<or=2+); Red Blood Cells-Urine 0 SEEN /hpf (0-5); Squamous Epithelial Cells - UA 0 SEEN /hpf (0-5)
[2021-08-27 15:53] LABS: Color, Urine Straw (Yellow); Glucose, Dipstick Normal (Normal); Ketone-Dipstick Negative (Negative); Leukocyte Esterase-Dipstick Negative /ul (Negative); Nitrite-Dipstick Negative (Negative); Occult Blood-Urine Negative /ul (Negative); Protein-Dipstick Negative (Negative); Specific Gravity, Urine 1.005 (1.002-1.030); Urine Bilirubin Dipstick Negative (Negative); Urine Clarity Clear (Clear); Urine Urobilinogen Normal (Normal)
[2021-08-27 15:56] VITALS: BP 135/75; PULSE 81; RESP 16; O2SAT 99
[2021-08-27 16:26] LABS: Bacteria RARE /hpf (None Seen); White Blood Cells 0-5 SEEN /hpf (0-5)
== END 2021-08-27 17:33 | disposition home or self-care (01) ==
PROVIDERS: Emergency Provider Emergency Medicine; PCP Family Medicine; Visit Provider Emergency Medicine
DX: L03.311 Cellulitis of abdominal wall (principal); E78.5 Hyperlipidemia, unspecified; N40.0 Benign prostatic hyperplasia without lower urinary tract symptoms; Z79.899 Other long term (current) drug therapy
CPT/HCPCS: 74177; 80048; 81001; 85025; 85652; 86140; 87040; 96365; 96366; 99283; J7030; J7040; Q9967; A4216

== ENCOUNTER → 2021-09-05 | Outpatient (CLI) | payer MEDICARE, BC, SELFPAY | END | disposition home or self-care (01) | LOC: LABSPEC 09:35 | PROVIDERS: PCP Family Medicine; Referring Provider Physician Assistant; Visit Provider Physician Assistant | DX: Z20.818 Contact with and (suspected) exposure to other bacterial communicable diseases (principal) | CPT/HCPCS: 87081 ==

== ENCOUNTER → 2023-03-20 | Outpatient (CLI) | payer MEDICARE, BC, SELFPAY ==
--- OUTSIDE RECORDS SUMMARY | 2023-03-20 11:38 | XMS RPT_ITS | CCD ---
Author Name Unknown Address [facility] [id number] [place] [address] Organization [facility] Care Team Providers Care Professional Driver Name Role Phone Bernard Contreras Unavailable Elzbieta Vazquez Unavailable Unavailable Allergies Allergy Classification Reported Allergen(s) Allergy Type Date of Onset Reaction(s) Facility (1 source) Penicillin Drug Allergy Rash [facility] Medications Current Medications Medication Drug Class(es) Dates Sig (Normalized) Sig (Original) doxycycline hyclate 100 mg oral capsule (1 source) Tetracycline-cla ss Drug Start: 09-28-2021 End: 10-07-2021 take 1 capsule by mouth twice daily doxycycline hyclate 100 mg oral capsule ; 1 cap(s) orally 2 times a day Quantity: 20 Refills: 0 Ordered: 28-Sep-2021 Elzbieta Vazquez Start: 28-Sep-2021 End: 07-Oct-2021 Generic Substitution Allowed Comments: Avoid prolonged or excessive exposure to direct and/or artificial sunlight while taking this medication.Do not take this drug if you are .Finish all this medication unless otherwise directed by prescriber.Medicati on should be taken with plenty of water. Problems Problem Classification Problem Date Documented Da te Episodic/Chronic Headache; including migraine (2 sources) Headache; including migraine 09-28-2021 Results Test Name Value Interpretation Reference Range Facil ity Vital Signs Date Time Vital Sign Value Performing Clinician Facility 09-28-2021 12:43-0400 Body height 182.8 cm Bernard Contreras Other Phone: [facility] 09-28-2021 12:43-0400 Body temperature 98.06 [degF] Bernard Contreras Other Phone: [facility] 09-28-2021 12:43-0400 Diastolic blood pressure 81 mm[Hg] Bernard Contreras Other Phone: [facility] 09-28-2021 12:43-0400 Heart rate 95 /min Bernard Contreras Other Phone: [facility] 09-28-2021 12:43-0400 Respiratory rate 16 /min Bernard Contreras Other Phone: [facility] 09-28-2021 12:43-0400 SaO2% (BldA) [Mass fraction] 97 % Bernard Contreras Other Phone: [facility] 09-28-2021 12:43-0400 Systolic blood pressure 122 mm[Hg] Bernard Contreras Other Phone: [facility] Encounters Encounter Date Encounter Type Care Provider Facility Start: 09-28-2021 End: 09-28-2021 [facility] P[facility] Date Payer Category Payer Policy ID Unknown Social History Date Type Detail Facility [facility] Tobacco smoking consumption unknown [facility] Summary Purpose Family History No Family History Records FoundNo Family History Records Found Advance Directives No Advanced Directives Records FoundNo Advanced Directives Records Found Additional Source Comments <item> Privacy Markings (unrecogniz ed section and content) Section Author: Dolores Irving PROHIBITION ON REDISCLOSURE OF CONFIDENTIAL INFORMATION This notice accompanies a disclosure of information concerning a client made to you with the consent of such client. (unrecognized sect ion and content) No Status Records FoundNo Status Records Found INFORMATION SOURCE (unrecogn ized section and content) DATE CREATED AUTHOR AUTHOR'S ORGANIZ ATION 10/06/2021 [facility] FOR RECORDS PERTAINING TO PATIENTS WHO ARE OR HAVE BEEN ENROLLED IN A CHEMICAL DEPENDENCY/SUBSTANCEABUSE PROGRAM, SOME INFORMATION MAY BE OMITTED. This clinical summary was aggregated from multiple sources. Caution should be exercised in using it in the provision of clinical care. This summary normalizes information from multiple sources, and as a consequence, information in this document may materially change the coding, format and clinical context of patient data. In addition, data may be omitted in some cases. CLINICAL DECISIONS SHOULD BE BASED ON THE PRIMARY CLINICAL RECORDS. [facility] [employer] provides no warranty or guarantee of the accuracy or completeness of information in this document.
[2023-03-20 13:21] LABS: ALB/GLOB Ratio 0.9 RATIO (0.9-2.4); AST(SGOT) 19 U/L (15-37); Alanine Aminotransfer ALT/SGPT 21 U/L (16-61); Albumin, Serum 3.3 g/dL (3.2-5.0); Alkaline Phosphatase 79 U/L (45-117); Anion Gap 4 (5-15); BUN 19 mg/dL (7-18); BUN/Creat Ratio 18.1 RATIO (10-20); Calcium,Total 8.6 mg/dL (8.5-10.1); Chloride 113 mmol/L (98-107); Cholesterol 147 mg/dL (200); Creatinine, Serum 1.05 mg/dL (0.70-1.30); EST Glomerular Filtration Rate 74 mL/min (>60); Est Glom Filt Rate - Afr Amer 89 mL/min (>60); Globulin 3.6 g/dL (2.2-4.2); Glucose 80 mg/dL (74-106); High Density Lipoprotein 56 mg/dL; PSA,Total - Annual Screen 3.27 ng/mL (0.00-4.00); Potassium 4.3 mmol/L (3.5-5.1); Protein, Total 6.9 g/dL (6.4-8.2); Sodium Level 144 mmol/L (136-145); Triglycerides 109 mg/dL; Very Low Density Lipoprotein 22 mg/dL (5-40)
== END | disposition home or self-care (01) ==
LOC: MFPLAB 10:31
PROVIDERS: PCP Family Medicine; Visit Provider Family Medicine
DX: E78.5 Hyperlipidemia, unspecified (principal); N40.0 Benign prostatic hyperplasia without lower urinary tract symptoms
CPT/HCPCS: 36415; 80053; 80061; 84153; G0103

== ENCOUNTER → 2023-11-23 | Outpatient (CLI) | payer MEDICARE, BC, SELFPAY ==
[2023-11-23 15:22] LABS: Absolute Neutrophil Count 3.3 X10^3/uL (2.0-7.7); Basophil# 0.06 X10^3/uL; Basophil% 1.2 % (0-1); Eosinophil# 0.11 X10^3/uL; Eosinophils% 2.2 % (0-5); Hematocrit 43.8 % (40-54); Hemoglobin 14.9 g/dL (13.0-16.5); Mean Corpuscular Hgb 29.7 pg (27.0-32.0); Mean Corpuscular Volume 87.3 fL (80-94); Mean Platelet Vol. 10.8 fl (6.2-12.0); Monocyte# 0.36 X10^3/uL; Monocyte% 7.2 % (0-10); NRBC Flagged by Analyzer 0 % (0-5); Neutrophil # 3.34 X10^3/uL (2.7-7.7); Platelet Count 147 K/mm3 (150-450); RBC Distribution Width CV 13.4 % (11.6-14.6); RBC Distribution Width SD 42.8 fl (35.1-43.9); Red Blood Count 5.02 M/mm3 (4.6-6.2)
[2023-11-23 16:18] LABS: AST(SGOT) 19 U/L (15-37); Alanine Aminotransfer ALT/SGPT 24 U/L (16-61); Albumin, Serum 3.7 g/dL (3.2-5.0); Alkaline Phosphatase 75 U/L (45-117); Anion Gap 6 (5-15); BUN 15 mg/dL (7-18); BUN/Creat Ratio 11.6 RATIO (10-20); Calcium,Total 9.5 mg/dL (8.5-10.1); Chloride 108 mmol/L (98-107); Creatinine, Serum 1.29 mg/dL (0.70-1.30); EST Glomerular Filtration Rate 58 mL/min (>60); Est Glom Filt Rate - Afr Amer 70 mL/min (>60); Globulin 3.6 g/dL (2.2-4.2); Glucose 102 mg/dL (74-106); Potassium 4.8 mmol/L (3.5-5.1); Protein, Total 7.3 g/dL (6.4-8.2); Sodium Level 141 mmol/L (136-145); Troponin-I HS 15 pg/mL (3.0-78.0)
== END | disposition home or self-care (01) ==
PROVIDERS: PCP Family Medicine; Referring Provider Family Medicine; Visit Provider Family Medicine
DX: R00.1 Bradycardia, unspecified (principal)
CPT/HCPCS: 36415; 80053; 84443; 84484; 85025

== ENCOUNTER 2023-11-25 13:37 | Observation (INO) | payer MEDICARE, BC, SELFPAY ==
[2023-11-25 12:30] VITALS: BP 158/71; PULSE 47; RESP 18; TEMP 36.3; O2SAT 100
--- NOTE | 2023-11-25 13:37 | EKG12_ITS ---
Test Reason : RHYTHM Blood Pressure : / mmHG Vent. Rate : 039 BPM Atrial Rate : 041 BPM P-R Int : 000 ms QRS Dur : 132 ms QT Int : 606 ms P-R-T Axes : 011 -47 100 degrees QTc Int : 487 ms Critical Test Result: Low HR , Arrhythmia , AV Block Marked sinus bradycardia with A-V dissociation and Idioventricular rhythm Left axis deviation Right bundle branch block T wave abnormality, consider lateral ischemia Abnormal ECG When compared with ECG of 21-JUN-2021 07:48, Idioventricular rhythm has replaced Sinus rhythm Vent. rate has decreased BY 53 BPM HIGH GRADE AV BLOCK Confirmed by Sree Boles [id number]), rewrite editor PRISCA FUENTES ([id number]) on 11/28/2023 8:07:13 AM Referred By: Edwin Brantley Confirmed By:Sree Boles
--- NOTE | 2023-11-25 13:48 | ECHOCS_ITS ---
Reason For Study: Pre Op Procedure This was a 2D Doppler, Color Flow transthoracic echocardiogram. Contrast injection was performed. Exam performed portable in patient room. Left Ventricle Normal LV size. Left ventricular systolic function is normal. The left ventricular ejection fraction is 55 %. No regional wall motion abnormalities noted. Right Ventricle Normal RV size. Normal systolic function. Atria Normal left atrium. Normal right atrium. Mitral Valve Normal mitral valve. Trivial mitral valve insufficiency. Tricuspid Valve Normal tricuspid valve. Aortic Valve Trisinus/trileaflet aortic valve. Mild (1+) aortic valve insufficiency. Pulmonic Valve Normal pulmonic valve. Great Vessels Normal aortic root. The pulmonary artery is normal size. Normal inferior vena cava. Pericardium/Pleural No pericardial effusion. Medication Diluted definity 2ml given slow IV push to enhance endocardial definition. MMode/2D Measurements & Calculations LVIDd: 5.1 cm IVSd: 1.3 cm LVOT diam: 2.1 cm LVIDs: 3.7 cm LVPWd: 0.96 cm FS: 27.3 % LVOT area: 3.5 cm2 Ao root diam: 3.2 cm LAV(MOD-bp): 69.0 ml LVAd ap4: 52.3 cm2 LA dimension: 4.0 cm LAV(MOD-bp) Indexed: 30.1 ml/m2 LVLd ap4: 10.4 cm LAV(MOD-sp2): 60.8 ml EDV(MOD-sp4): 217.4 ml LAV(MOD-sp4): 72.5 ml EDV(sp4-el): 223.1 ml LVAs ap4: 32.5 cm2 LVLs ap4: 8.8 cm ESV(MOD-sp4): 102.2 ml ESV(sp4-el): 102.3 ml EF(MOD-sp4): 53.0 % EF(sp4-el): 54.1 % SV(MOD-sp4): 115.2 ml SV(sp4-el): 120.7 ml Ao sinus diam: 3.[address] Junction: 2.6 cm LA A4 area: 23.7 cm2 RA A4 area: 16.7 cm2 TAPSE: 2.3 cm Doppler Measurements & Calculations Ao V2 max: 142.8 cm/sec AI max bull: 352.0 cm/sec LV V1 max: 114.5 cm/sec Ao max P.2 mmHg AI max P.6 mmHg LV V1 max P.2 mmHg Ao V2 mean: 94.9 cm/sec AI dec slope: 86.8 cm/sec2 LV V1 mean P.8 mmHg Ao mean P.2 mmHg AI P1/2t: 1188 msec LV V1 mean: 77.6 cm/sec Ao V2 VTI: 36.6 cm LV V1 VTI: 29.2 cm AV (velocity ratio): 0.80 JIMI(I,D): 2.8 cm2 JIMI(V,D): 2.8 cm2 SV(LVOT): 102.9 ml PA V2 max: 92.3 cm/sec ECHO/Echo Complete W/ Contrast Interpretation Summary Normal LV size. Left ventricular systolic function is normal. The left ventricular ejection fraction is 55 %. Mild (1+) aortic valve insufficiency. Contrast injection was performed. Ordering Physician: Jakub Ni Referring Physician: Edwin rBantley Performed By: Josesito Duncan RCS
[2023-11-25 13:55] VITALS: BMI 31.8
[2023-11-25 14:06] LABS: Hemoglobin 14.7 g/dL (13.0-16.5); Mean Corp Hgb Conc 33.4 g/dL (32-36); Mean Corpuscular Volume 86.8 fL (80-94); Platelet Count 132 K/mm3 (150-450); RBC Distribution Width CV 13.4 % (11.6-14.6); RBC Distribution Width SD 42.6 fl (35.1-43.9); Red Blood Count 5.07 M/mm3 (4.6-6.2); White Blood Count 4.9 K/mm3 (4.4-11.0)
[2023-11-25 14:29] LABS: ALB/GLOB Ratio 0.9 RATIO (0.9-2.4); AST(SGOT) 19 U/L (15-37); Alanine Aminotransfer ALT/SGPT 21 U/L (16-61); Albumin, Serum 3.4 g/dL (3.2-5.0); Alkaline Phosphatase 75 U/L (45-117); Anion Gap 8 (5-15); BUN 12 mg/dL (7-18); BUN/Creat Ratio 10.1 RATIO (10-20); Calcium,Total 9.3 mg/dL (8.5-10.1); Chloride 108 mmol/L (98-107); Creatinine, Serum 1.19 mg/dL (0.70-1.30); EST Glomerular Filtration Rate 64 mL/min (>60); Est Glom Filt Rate - Afr Amer 77 mL/min (>60); Globulin 3.6 g/dL (2.2-4.2); Glucose 96 mg/dL (74-106); Potassium 4.3 mmol/L (3.5-5.1); Sodium Level 142 mmol/L (136-145)
[2023-11-25 16:08] VITALS: BP 134/64; PULSE 42; RESP 18; TEMP 36.8; O2SAT 96
[2023-11-25 22:25] VITALS: BP 123/63; PULSE 36; RESP 16; TEMP 36.6; O2SAT 99
[2023-11-25] MEDS: Atorvastatin Calcium 20 MG Tablet PO (22:35)
[2023-11-26] VITALS (15 sets, daily range): BP systolic 111–159; BP diastolic 53–93; PULSE 33–90; RESP 16–18; TEMP 35.8–36.7; O2SAT 92–98
--- NOTE | 2023-11-26 11:51 | NURSING ---
called report to Danna MIGUEL in [employer] lab[employer]
--- NOTE | 2023-11-26 13:43 | CL.IE_ITS ---
Patient: WU DE LEON Study Date: 11/26/2023 Performing: Edwin Brantley MD : 1950 Age: 73 Gender: male PROCEDURES PERFORMED [id number]-([id number])INITIAL PACER INSERT+DUAL LEADS INDICATIONS Atrioventricular (AV) block PROCEDURE DETAILS The patient was brought to the Catheterization Lab in the postabsorptive nonsedated state. Informed consent was obtained prior to the procedure. Incision was made to the left upper chest. Access was achieved and a guidewire was advanced into the left subclavian vein. A peel-away sheath was inserted into the left subclavian vein. PPM ventricular lead was inserted / positioned to right ventricular apex. PPM ventricular lead testing performed. PPM ventricular lead testing performed. PPM atrial lead was inserted / positioned to the right atrial appendage. PPM atrial lead testing performed. Device pocket was irrigated with antibiotic. Device pocket was irrigated with antibiotic. Subcutaneous closure was completed. Steri-strips applied to left subclavicular incision. The patient tolerated the procedure well. Estimated Blood Loss: 3 ml's IMPLANTED / EX-PLANTED DEVICES IMPLANTED DEVICE(S): PPM Generator - Central Office Worker: [employer], Model # [id number] , Serial # [id number] PPM Atrial lead - Central Office Worker: [employer], Model # 7841 , Serial # [id number] PPM Ventricular lead - Central Office Worker: [employer], Model # 7842 , Serial # [id number] DEVICE PARAMETERS ATRIAL LEAD PARAMETERS: P wave- 1.4 (mV) Current- .7 (mA) threshold- .4 (V) impedence- 600 (OHMS) VENTRICULAR LEAD PARAMETERS: Current- .4 (mA) threshold- .4 (V) impedence- 1028 (OHMS) DEVICE PARAMETERS: Mode- ddd Lower rate- 60 Upper rate- 130 CONCLUSIONS / RECOMMENDATIONS Device Conclusions: Successful implantation of a dual chamber pacemaker Device Recommendations: Follow up with Primary Care Physician PROCEDURE MEDICATIONS Versed 1 mg IV Fentanyl 50 mcg IV Versed .5 mg IV Oxygen: 2 L/min via nasal cannula Clindamycin 900 mg IV 11/26/2023 12:13:05 Signed By Edwin Brantley MD On 11/26/2023 13:42:13 Edwin Brantley MD
[2023-11-26] MEDS: FLU VACCINE **HIGH DOSE** TV 24-25 180 MCG/0.5 ML SYRINGE IM (14:53)
[2023-11-26] MEDS: Finasteride 5 MG Tablet PO (14:53)
--- NOTE | 2023-11-26 15:05 | CASEMGMT ---
Met with patient to complete PINO form. PINO form explained to patient who voiced understanding and signed form. Original form placed in pt?s chart and copy provided to patient. Indira Almonte, Discharge Planning Asst
--- NOTE | 2023-11-26 15:08 | DCINST_ITS ---
Discharge Instructions Diet Discharge Diet: No restrictions (as you feel able. No excessive stretching. No lifting your arm over your head (keep elbow below shoulder level) until seen for your pacemaker check. Do not lift your elbow away from your side until you are seen for your first visit. Keep the arm sling on if it helps remind you not to lift your arm.) Activity Discharge Activity: May Not Drive May shower in (days): 2 Additional Activity Instructions:: May shower or bathe on [day 3]. Do not scrub the incision or soak in the tub. Just wash with soap and let the water run over the incision. Gently pat dry with towel. Medications: Take your pain medication as directed. Refer to your discharge instruction sheet for a list of medications you are to take. Dressing / Incision Call your doctor if your incision/area has: Continuous Slow Oozing, Sudden Increased Bleeding, Increased Pain/ Swelling, Increased Redness, Foul Smelling Discharge and Swelling at the incision site Call your doctor if you observe: Fever of 101 or Higher, Shortness of breath, Dizziness, Fainting spells, Swelling in the ankles, Chest pain, Prolonged hiccupping and Increased palpitations (irregular heartbeat) Suture Line Care: Avoid Pulling/Pushing and Avoid Pinching/Bending Remove Dressing in: 4 days Cleanse incision/area with: Do not get Incision Wet and Keep Dressing Clean & Dry Additional Dressing/Incision Instructions:: When dressing is removed, wash and dry incision. Keep covered with a light bandage if it is rubbing against your clothing. Do not cover the incision with an airtight bandage. Change the bandage daily. Do not remove steri strips. The strips will fall off on their own. Follow Up Care Please Follow Up With: Edwin Brantley MD When: December 02 at 10 AM at the [facility] Test Results: Test results from this visit will be discussed in further detail at your follow- up appointment, if applicable. Discharge Plan Admission Admit Date/Time: 11/25/23 13:37 Attending Provider: Edwin Brantley Primary Care Provider: Tu Ho Discharge Orders/Prescriptions Prescriptions: No Action rosuvastatin 10 mg tablet 10 mg PO DAILY finasteride [Proscar] 5 mg Tablet 5 mg PO DAILY Referrals / Follow Up: Tu Ho MD [Primary Care Provider] -
[2023-11-26] MEDS: Atorvastatin Calcium 20 MG Tablet PO (22:40)
[2023-11-27 04:45] VITALS: BP 150/92; PULSE 79; RESP 16; TEMP 36.6; O2SAT 95
--- NOTE | 2023-11-27 05:55 | RAD_ITS ---
INDICATION: Post permanant ICD/Pacemaker -- inspiration/expiration. Arms Down. Wet read to MD EXAMINATION/TECHNIQUE: X-RAY - XR Chest 3 Views COMPARISON: No relevant prior comparison study available FINDINGS: LINES/DEVICES: Pacemaker device overlying the left chest with dual leads terminating in the region of the right atrium and right ventricle. LUNGS: No consolidation. Subsegmental atelectasis in the lung bases on the expiratory view. No pneumothorax. MEDIASTINUM: Unremarkable. CARDIAC SILHOUETTE: Not enlarged. BONES AND SOFT TISSUES: No acute abnormalities. Degenerative changes of the dorsal spine. RAD/Chest 3 View IMPRESSION: No pneumothorax postpacemaker insertion. No evidence of active intrathoracic disease. Electronically Signed: Letitia Wayne MD at 5:39 EDT ,
--- NOTE | 2023-11-27 07:05 | PCM.PN.CARD ---
Subjective Subjective Patient seen and evaluated. Appears to doing well. No bleeding overnight no events. Objective Data Vital Signs: Vital Signs Temp Pulse Resp BP Pulse Ox O2 Del Method 97.8 F 79 16 150/92 H 95 Room Air 11/27/23 04:45 11/27/23 04:45 11/27/23 04:45 11/27/23 04:45 11/27/23 04:45 11/27/23 04:45 Oxygen Delivery Method Room Air Weight: 235 lb 3.732 oz Body Mass Index (BMI) 31.8 Intake & Output: Intake and Output for Last 24 Hours 11/25/23 11/26/23 11/27/23 23:59 23:59 23:59 Intake Total 250 / 500 250 / 250 Output Total 200 / 200 Balance 250 / 300 50 / 50 Lab / Micro Data 11/25/23 13:47 11/25/23 13:47 Cardiology Labs/Tests Rhythm: EKG: ECHO: Stress Test: Cardiac Cath: PCI: CT Surgery: Holter monitor: EPS: PPM: CXR: Chest CT Scan: Radiography Diagnostic Testing: Radiology Impression Chest X-Ray 11/27/23 05:55 IMPRESSION: No pneumothorax postpacemaker insertion. No evidence of active intrathoracic disease. Electronically Signed: Letitia Wayne MD at 5:39 EDT , Physical Exam Const alert, oriented x3 and no apparent distress General Appearance: cooperative HEENT hearing grossly normal bilaterally Head and Scalp: atraumatic Eyes EOMs intact bilaterally Neck General: normal visual inspection Chest inspection of chest normal and palpation of chest normal Resp normal respiratory effort Auscultation: clear to auscultation bilaterally Cardio regular rate, regular rhythm, S1 normal heart sound and S2 normal heart sound Jugular Venous Distention: JVD GI normal to inspection, nondistended, normoactive bowel sounds Extremity normal capillary refill and no pedal edema Peripheral Pulses: Yes pulses 2+ throughout and femoral pulses present Skin no rashes or lesions noted Neuro oriented x3 and CN's II-XII intact bilaterally Psych Appearance: grossly normal and appropriate Assessment & Plan Assessment/Plan (1) Presence of cardiac pacemaker: PLAN: Patient is status post permanent pacemaker implantation for high-grade AV block. Pacemaker was interrogated this morning and is noted to be functioning well. Chest x-ray also demonstrates leads in good position. Will discharge for outpatient follow-up
[2023-11-27 09:05] VITALS: BP 149/89; PULSE 89; RESP 16; TEMP 36.4; O2SAT 98
[2023-11-27] MEDS: Finasteride 5 MG Tablet PO (09:07)
--- NOTE | 2023-11-27 09:16 | CASEMGMT ---
LAMONT CM into pt room, pt sitting up in chair. Pt is I in ADLs and pt is ready to go home. Pt denies any homegoing needs.
--- NOTE | 2023-11-27 10:14 | PHA.DC.MR.R ---
Pharmacy [facility] Med Reconciliation Pharmacy Service has performed discharge medication reconciliation for this patient. The patient's discharge medication list was reviewed for discrepancies and discrepancies were resolved. Medications at Discharge Home Medications rosuvastatin 10 mg tablet 10 mg PO DAILY 06/08/21 finasteride 5 mg tablet (Proscar) 5 mg PO DAILY 07/05/21
== END 2023-11-27 07:08 | disposition home or self-care (01) ==
PROVIDERS: Admitting Provider Internal Medicine Cardiovascular Disease; PCP Family Medicine; Referring Provider Internal Medicine Cardiovascular Disease; Visit Provider Internal Medicine Cardiovascular Disease
DX: Z45.018 Encounter for adjustment and management of other part of cardiac pacemaker (principal); I45.10 Unspecified right bundle-branch block; Z79.01 Long term (current) use of anticoagulants; R06.02 Shortness of breath; R60.0 Localized edema; R00.1 Bradycardia, unspecified; E78.5 Hyperlipidemia, unspecified; N40.0 Benign prostatic hyperplasia without lower urinary tract symptoms; Z23 Encounter for immunization; I44.39 Other atrioventricular block
CPT/HCPCS: 33208; 36415; 71047; 80053; 85027; 90662; 93005; 93306; 99152; 99153; 99221; J7040; J7050; Q9957; A4216; C1894; C8929; G0378

== ENCOUNTER → 2024-05-30 | Outpatient (CLI) | payer MEDICARE, BC, SELFPAY ==
[2024-05-30 13:19] LABS: Absolute Lymphocyte Count 1.68 X10^3/uL (0.83-4.51); Absolute Neutrophil Count 2.7 X10^3/uL (2.0-7.7); Basophil# 0.04 X10^3/uL; Basophil% 0.8 % (0-1); Eosinophil# 0.16 X10^3/uL; Eosinophils% 3.2 % (0-5); Hematocrit 42.3 % (40-54); Hemoglobin 14.4 g/dL (13.0-16.5); Lymphocyte # 1.68 X10^3/ul (0.83-4.51); Lymphocyte % 33.2 % (19-41); Mean Corpuscular Hgb 30.1 pg (27.0-32.0); Mean Corpuscular Volume 88.3 fL (80-94); Mean Platelet Vol. 9.4 fl (6.2-12.0); Monocyte% 9.9 % (0-10); NRBC Flagged by Analyzer 0 % (0-5); Neutrophil # 2.67 X10^3/uL (2.7-7.7); Neutrophil % 52.7 % (47-70); Platelet Count 138 K/mm3 (150-450); RBC Distribution Width CV 13.3 % (11.6-14.6); RBC Distribution Width SD 43.3 fl (35.1-43.9); Red Blood Count 4.79 M/mm3 (4.6-6.2); White Blood Count 5.1 K/mm3 (4.4-11.0)
[2024-05-30 14:27] LABS: ALB/GLOB Ratio 1.5 RATIO (0.9-2.4); AST(SGOT) 25 U/L (<=37); Alanine Aminotransfer ALT/SGPT 21 U/L (<=46); Alkaline Phosphatase 69 U/L (40-129); Anion Gap 8 (5-15); BUN 15 mg/dL (4-19); BUN/Creat Ratio 12.9 RATIO (10-20); Calcium,Total 9.2 mg/dL (7.6-11.0); Carbon Dioxide 25.2 mmol/L (21.0-32.0); Chloride 107 mmol/L (98-108); Creatinine, Serum 1.19 mg/dL (0.70-1.20); EST Glomerular Filtration Rate 65 (>60); Globulin 2.8 g/dL (2.2-4.2); Glucose 94 mg/dL (70-99); Magnesium 2.4 mg/dL (1.5-2.2); Potassium 4.7 mmol/L (3.3-5.1); Protein, Total 6.8 g/dL (5.9-8.4); Sodium Level 140 mmol/L (133-145); Total Bilirubin 0.75 mg/dL (0.00-1.30)
== END | disposition home or self-care (01) ==
LOC: LAB 12:56
PROVIDERS: PCP Family Medicine; Referring Provider Nurse Practitioner Family; Visit Provider Nurse Practitioner Family
DX: I45.10 Unspecified right bundle-branch block (principal); I44.39 Other atrioventricular block; I47.19 Other supraventricular tachycardia; E78.5 Hyperlipidemia, unspecified; D86.9 Sarcoidosis, unspecified; R94.31 Abnormal electrocardiogram [ECG] [EKG]; Z95.0 Presence of cardiac pacemaker
CPT/HCPCS: 36415; 80053; 83735; 84439; 84443; 85025

== ENCOUNTER → 2025-01-16 | Outpatient (CLI) | payer MEDICARE, BC, SELFPAY ==
[2025-01-16 10:47] LABS: PSA,Total - Annual Screen 2.02 ng/mL (0.02-4.00)
== END | disposition home or self-care (01) ==
LOC: LAB 08:59
PROVIDERS: PCP Family Medicine; Referring Provider Urology; Visit Provider Urology
DX: Z12.5 Encounter for screening for malignant neoplasm of prostate (principal); R97.20 Elevated prostate specific antigen [PSA]
CPT/HCPCS: 36415; 84153; G0103